=== PATIENT | male | born 1955 | race Caucasian/White ===

== ENCOUNTER → 2018-06-17 | Outpatient (CLI) | payer MEDICARE, OTHER ==
[2018-06-17 13:33] LABS: BASOPHILS ABSOLUTE AUTO 0.13 K/mm3 (0.00-0.23); BASOPHILS PERCENT AUTO 1 % (0-2); EOSINOPHILS ABSOLUTE AUTO 0.38 K/mm3 (0.00-0.68); EOSINOPHILS PERCENT AUTO 4 % (0-6); IMMATURE GRAN ABSOLUTE AUTO 0.03 K/mm3 (0.00-0.10); IMMATURE GRAN PERCENT AUTO 0 % (0-1); LYMPHOCYTES ABSOLUTE AUTO 1.05 K/mm3 (0.84-5.20); LYMPHOCYTES PERCENT AUTO 11 % (21-46); MONOCYTES ABSOLUTE AUTO 1.31 K/mm3 (0.16-1.47); MONOCYTES PERCENT AUTO 13 % (4-13); Mean Corpuscular HGB 34.2 pg (26.0-34.0); Mean Corpuscular HGB Conc 34.8 g/dL (31.5-36.5); Mean Corpuscular Volume 98 fL (80-100); Mean Platelet Volume 8.2 fL (9.1-12.4); NEUTROPHILS ABSOLUTE AUTO 6.98 K/mm3 (1.96-9.15); NEUTROPHILS PERCENT AUTO 71 % (41-73); Platelet Count 255 K/mm3 (150-400); RDW Coefficient Variation 13.1 % (11.7-14.2); Red Blood Cell Count 4.68 M/mm3 (4.30-5.90); White Blood Cell Count 9.88 K/mm3 (4.00-11.30)
[2018-06-17 13:41] LABS: Albumin, Blood 3.9 g/dL (3.4-5.0); Albumin/Globulin Ratio 0.9 (0.8-1.8); Bilirubin, Total 0.5 mg/dL (0.1-1.0); Calcium, Blood 8.7 mg/dL (8.5-10.1); Creatinine, Blood 1.33 mg/dL (0.60-1.20); Globulin, Blood 4.3 g/dL (2.2-4.0); Potassium, Blood 4.7 mmol/L (3.5-5.5); Total Protein, Blood 8.2 g/dL (6.4-8.2)
== END | disposition home or self-care (01) ==
LOC: LAB SHORT 13:27 → LAB EV 13:27
PROVIDERS: Physician Assistant
DX: E11.65 Type 2 diabetes mellitus with hyperglycemia (principal); R60.9 Edema, unspecified
CPT/HCPCS: 80053; 83880; 85025

== ENCOUNTER 2018-10-28 14:31 | Emergency (ER) | payer MEDICARE, OTHER ==
[~2018-10-28] VITALS: Ht 177.8 cm; Wt 163.3 kg
[2018-10-28 15:17] LABS: BASOPHILS ABSOLUTE AUTO 0.08 K/mm3 (0.00-0.23); BASOPHILS PERCENT AUTO 1 % (0-2); EOSINOPHILS ABSOLUTE AUTO 0.24 K/mm3 (0.00-0.68); EOSINOPHILS PERCENT AUTO 2 % (0-6); Hematocrit 43.6 % (37.0-53.0); Hemoglobin 14.6 g/dL (13.5-17.5); IMMATURE GRAN ABSOLUTE AUTO 0.08 K/mm3 (0.00-0.10); IMMATURE GRAN PERCENT AUTO 1 % (0-1); LYMPHOCYTES ABSOLUTE AUTO 1.21 K/mm3 (0.84-5.20); LYMPHOCYTES PERCENT AUTO 12 % (21-46); MONOCYTES ABSOLUTE AUTO 1.23 K/mm3 (0.16-1.47); MONOCYTES PERCENT AUTO 12 % (4-13); Mean Corpuscular HGB 34.3 pg (26.0-34.0); Mean Corpuscular HGB Conc 33.5 g/dL (31.5-36.5); Mean Corpuscular Volume 102 fL (80-100); Mean Platelet Volume 8.4 fL (9.1-12.4); NEUTROPHILS ABSOLUTE AUTO 7.59 K/mm3 (1.96-9.15); NEUTROPHILS PERCENT AUTO 73 % (41-73); Platelet Count 214 K/mm3 (150-400); RDW Coefficient Variation 12.5 % (11.7-14.2); RDW Standard Deviation 46.5 fL (35.1-46.3); Red Blood Cell Count 4.26 M/mm3 (4.30-5.90); White Blood Cell Count 10.43 K/mm3 (4.00-11.30)
[2018-10-28 15:32] LABS: Alanine Aminotransfer (ALT/SGP 51 U/L (12-78); Albumin, Blood 3.4 g/dL (3.4-5.0); Albumin/Globulin Ratio 0.9 (0.8-1.8); Alk Phos 92 U/L (50-136); Anion Gap 5 mmol/L (6-16); Aspartate Aminotrans (AST/SGOT 37 U/L (12-37); Bilirubin, Total 0.3 mg/dL (0.1-1.0); Blood Urea Nitrogen 11 mg/dL (8-24); Bun/Creatinine Ratio 10.7 (12.0-20.0); CO2, Blood 25 mmol/L (21-32); Calcium, Blood 8.9 mg/dL (8.5-10.1); Chloride, Blood 108 mmol/L (98-108); Creatinine, Blood 1.03 mg/dL (0.60-1.20); Globulin, Blood 3.7 g/dL (2.2-4.0); Glomerular Filtration Rate >60 (60-); Glucose, Blood 110 mg/dL (70-99); Potassium, Blood 3.9 mmol/L (3.5-5.5); Sodium, Blood 138 mmol/L (136-145); Total Protein, Blood 7.1 g/dL (6.4-8.2)
[2018-10-28] MEDS ORDERED: Synthroid200 MCG PO (16:32)
[2018-10-28] MEDS ORDERED: POTCIT10 (16:32)
[2018-10-28] MEDS ORDERED: HYDPAM50 (16:33)
[2018-10-28] MEDS ORDERED: ALBU90OI INH (16:33)
[2018-10-28] MEDS ORDERED: FURO20 (16:33)
[2018-10-28] MEDS ORDERED: MONT10T PO (16:33)
[2018-10-28] MEDS ORDERED: FLUT1DIS2 (16:33)
[2018-10-28] MEDS ORDERED: CYCL10 (16:34)
[2018-10-28] MEDS ORDERED: LISI20 PO (16:34)
[2018-10-28] MEDS ORDERED: MELO7.5 PO (16:34)
[2018-10-28] MEDS ORDERED: FAMO40 (16:34)
[2018-10-28] MEDS ORDERED: SODCHL3.5O (16:35)
[2018-10-28] MEDS ORDERED: GENPREOPSU (16:35)
[2018-10-28] MEDS ORDERED: BRIMONIDINE TART5 M1 (16:35)
[2018-10-28 18:01] LABS: Source, Urine Clean Catch
[2018-10-28 18:10] LABS: Bilirubin, Urine Neg (Neg); Blood, Urine Neg (Neg); Glucose Qualitative, Urine Neg (Neg); Ketones, Urine Neg (Neg); Leukocyte Esterase, Urine Neg (Neg); Nitrite, Urine Neg (Neg); Protein, Urine Neg (Neg); Specific Gravity, Urine 1.025 (1.003-1.022); Urobilinogen, Urine NORM (Normal)
[2018-10-28 18:16] LABS: Appearance, Urine Clear (Clear); Color, Urine Yellow (P-Yellow)
== END 2018-10-28 18:55 | disposition home or self-care (01) ==
LOC: ER 14:31
PROVIDERS: Physician Assistant
DX: R35.0 Frequency of micturition (principal); R39.15 Urgency of urination; E03.9 Hypothyroidism, unspecified; I11.0 Hypertensive heart disease with heart failure; I50.9 Heart failure, unspecified; Z88.0 Allergy status to penicillin; Z88.2 Allergy status to sulfonamides; Z88.8 Allergy status to other drugs, medicaments and biological substances; Z79.899 Other long term (current) drug therapy
CPT/HCPCS: 36415; 51798; 76870; 80053; 81003; 85025; 99284-25

== ENCOUNTER → 2019-12-15 | Outpatient (CLI) | payer MEDICARE, OTHER ==
[~2019-12-15] MED LIST: ALBU90OI INH; BRIMONIDINE TART5 M1; CYCL10; FAMO40; FLUT1DIS2; FURO20; GENPREOPSU; HYDPAM50; LISI20 PO; MELO7.5 PO; MONT10T PO; POTCIT10; SODCHL3.5O; Synthroid200 MCG PO
== END | disposition home or self-care (01) ==
LOC: PLD 09:14 → LAB SHORT 09:14
DX: L90.5 Scar conditions and fibrosis of skin (principal)
CPT/HCPCS: 88305

== ENCOUNTER → 2020-01-20 | Outpatient (CLI) | payer OTHER ==
[2020-01-20 12:42] LABS: Source, Urine Clean Catch
[2020-01-20 14:08] LABS: Appearance, Urine Clear (Clear); Bilirubin, Urine Neg (Neg); Blood, Urine Neg (Neg); Color, Urine Yellow (P-Yellow); Glucose Qualitative, Urine Neg (Neg); Ketones, Urine Neg (Neg); Leukocyte Esterase, Urine Neg (Neg); Nitrite, Urine Neg (Neg); Protein, Urine Neg (Neg); Urobilinogen, Urine NORM (Normal)
== END | disposition home or self-care (01) ==
LOC: LAB 11:25
PROVIDERS: Nurse Practitioner Family
DX: N28.9 Disorder of kidney and ureter, unspecified (principal)
CPT/HCPCS: 81003

== ENCOUNTER 2021-02-20 12:02 | Emergency (ER) | payer MEDICARE ==
[~2021-02-20] VITALS: Ht 177.8 cm; Wt 174.6 kg
[2021-02-20] MEDS ORDERED: MONDOXYNE NL100 MG PO (12:24)
[2021-02-20] MEDS ORDERED: TAMSULOSIN HCL0.4 M1 PO (12:24)
[2021-02-20] MEDS ORDERED: POTA10T PO (12:25)
[2021-02-20] MEDS ORDERED: TRELEGY ELLIPT1 EACH IH (12:27)
[2021-02-20] MEDS ORDERED: CEPH500 PO (13:48)
== END 2021-02-20 14:15 | disposition home or self-care (01) ==
LOC: ER 12:02
DX: L03.115 Cellulitis of right lower limb (principal); I11.9 Hypertensive heart disease without heart failure; I50.9 Heart failure, unspecified; E03.9 Hypothyroidism, unspecified; Z87.891 Personal history of nicotine dependence; Z88.0 Allergy status to penicillin; Z88.2 Allergy status to sulfonamides; Z88.8 Allergy status to other drugs, medicaments and biological substances; Z79.899 Other long term (current) drug therapy
CPT/HCPCS: 73620; 99283-25; A9270

== ENCOUNTER 2021-11-21 01:43 | Day surgery (SDC) | payer MEDICARE ==
[~2021-11-21 01:43] MED LIST changes: +CEPH500 PO; +MONDOXYNE NL100 MG PO; +POTA10T PO; +TAMSULOSIN HCL0.4 M1 PO; +TRELEGY ELLIPT1 EACH IH
== END 2021-11-21 22:49 | disposition home or self-care (01) ==
LOC: WOUND 01:43
DX: E11.621 Type 2 diabetes mellitus with foot ulcer (principal); E11.40 Type 2 diabetes mellitus with diabetic neuropathy, unspecified; Z88.0 Allergy status to penicillin; Z88.2 Allergy status to sulfonamides; L97.512 Non-pressure chronic ulcer of other part of right foot with fat layer exposed; L89.893 Pressure ulcer of other site, stage 3; Z88.8 Allergy status to other drugs, medicaments and biological substances
CPT/HCPCS: G0463

== ENCOUNTER 2021-11-28 01:57 | Day surgery (SDC) | payer MEDICARE | END 2021-11-28 23:21 | disposition home or self-care (01) | LOC: WOUND 01:57 | DX: E11.621 Type 2 diabetes mellitus with foot ulcer (principal); L97.512 Non-pressure chronic ulcer of other part of right foot with fat layer exposed; L89.893 Pressure ulcer of other site, stage 3; E11.40 Type 2 diabetes mellitus with diabetic neuropathy, unspecified | CPT/HCPCS: G0463 ==

== ENCOUNTER 2021-12-05 02:44 | Day surgery (SDC) | payer MEDICARE | END 2021-12-05 23:15 | disposition home or self-care (01) | LOC: WOUND 02:44 | DX: L89.893 Pressure ulcer of other site, stage 3 (principal); E11.621 Type 2 diabetes mellitus with foot ulcer | CPT/HCPCS: A9270; G0463 ==

== ENCOUNTER 2023-04-16 08:45 | Emergency (ER) | payer OTHER ==
[~2023-04-16] VITALS: Ht 177.8 cm; Wt 172.4 kg
[2023-04-16 11:54] LABS: BASOPHILS ABSOLUTE AUTO 0.12 K/mm3 (0.00-0.23); BASOPHILS PERCENT AUTO 1 % (0-2); EOSINOPHILS ABSOLUTE AUTO 0.32 K/mm3 (0.00-0.68); EOSINOPHILS PERCENT AUTO 3 % (0-6); Hematocrit 44.9 % (37.0-53.0); Hemoglobin 15.2 g/dL (13.5-17.5); IMMATURE GRAN ABSOLUTE AUTO 0.03 K/mm3 (0.00-0.10); IMMATURE GRAN PERCENT AUTO 0 % (0-1); LYMPHOCYTES ABSOLUTE AUTO 1.63 K/mm3 (0.84-5.20); LYMPHOCYTES PERCENT AUTO 16 % (21-46); MONOCYTES ABSOLUTE AUTO 0.99 K/mm3 (0.16-1.47); MONOCYTES PERCENT AUTO 10 % (4-13); Mean Corpuscular HGB 31.5 pg (26.0-34.0); Mean Corpuscular HGB Conc 33.9 g/dL (31.5-36.5); Mean Corpuscular Volume 93 fL (80-100); Mean Platelet Volume 8.8 fL (9.1-12.4); NEUTROPHILS ABSOLUTE AUTO 6.91 K/mm3 (1.96-9.15); NEUTROPHILS PERCENT AUTO 69 % (41-73); Platelet Count 266 K/mm3 (150-400); RDW Coefficient Variation 14.7 % (11.7-14.2); RDW Standard Deviation 50.9 fL (35.1-46.3); Red Blood Cell Count 4.83 M/mm3 (4.30-5.90)
[2023-04-16 12:18] LABS: Albumin, Blood 4.1 g/dL (3.4-5.0); Bilirubin, Total 0.4 mg/dL (0.1-1.0); Bun/Creatinine Ratio 15.4 (12.0-20.0); Calcium, Blood 9.7 mg/dL (8.5-10.1); Creatinine, Blood 1.36 mg/dL (0.60-1.20); Globulin, Blood 4.3 g/dL (2.2-4.0); Potassium, Blood 4.4 mmol/L (3.5-5.5); Total Protein, Blood 8.4 g/dL (6.4-8.2)
[2023-04-16] MEDS ORDERED: HYDROmorphone HCl/Pf 1MG SYR IV ONE (13:05)
[2023-04-16] MEDS ORDERED: Ondansetron HCl 2 MG / ML 2ML Vial IV ONE (13:05)
[2023-04-16] MEDS ORDERED: Percocet 5-3251 EACH PO (15:06)
[2023-04-16 15:07] VITALS: BP 115/74
== END 2023-04-16 15:27 | disposition home or self-care (01) ==
LOC: ER 08:45
PROVIDERS: Physician Assistant
DX: S76.911A Strain of unspecified muscles, fascia and tendons at thigh level, right thigh, initial encounter (principal); E03.9 Hypothyroidism, unspecified; Z87.891 Personal history of nicotine dependence; I11.0 Hypertensive heart disease with heart failure; I50.9 Heart failure, unspecified; Z88.8 Allergy status to other drugs, medicaments and biological substances; Z88.2 Allergy status to sulfonamides; Z88.0 Allergy status to penicillin; Z79.899 Other long term (current) drug therapy
CPT/HCPCS: 73700; 80053; 83690; 85025; 96374; 96375; 99284-25; J1170; J2405

== ENCOUNTER → 2024-01-11 | Outpatient (CLI) | payer OTHER ==
[~2024-01-11] MED LIST changes: +Percocet 5-3251 EACH PO
[2024-01-11 12:15] LABS: BASOPHILS ABSOLUTE AUTO 0.15 K/mm3 (0.00-0.23); BASOPHILS PERCENT AUTO 1 % (0-2); EOSINOPHILS PERCENT AUTO 4 % (0-6); Hematocrit 41.2 % (37.0-53.0); Hemoglobin 14.1 g/dL (13.5-17.5); IMMATURE GRAN ABSOLUTE AUTO 0.03 K/mm3 (0.00-0.10); IMMATURE GRAN PERCENT AUTO 0 % (0-1); LYMPHOCYTES ABSOLUTE AUTO 1.89 K/mm3 (0.84-5.20); LYMPHOCYTES PERCENT AUTO 18 % (21-46); MONOCYTES ABSOLUTE AUTO 1.36 K/mm3 (0.16-1.47); MONOCYTES PERCENT AUTO 13 % (4-13); Mean Corpuscular HGB 31.3 pg (26.0-34.0); Mean Corpuscular HGB Conc 34.2 g/dL (31.5-36.5); Mean Corpuscular Volume 91 fL (80-100); Mean Platelet Volume 8.9 fL (9.1-12.4); NEUTROPHILS PERCENT AUTO 65 % (41-73); Platelet Count 320 K/mm3 (150-400); RDW Coefficient Variation 14.8 % (11.7-14.2); RDW Standard Deviation 49.9 fL (35.1-46.3); Red Blood Cell Count 4.51 M/mm3 (4.30-5.90); White Blood Cell Count 10.83 K/mm3 (4.00-11.30)
[2024-01-11 12:40] LABS: Albumin, Blood 3.7 g/dL (3.4-5.0); Albumin/Globulin Ratio 0.9 (0.8-1.8); Bilirubin, Total 0.3 mg/dL (0.1-1.0); Bun/Creatinine Ratio 13.1 (12.0-20.0); Calcium, Blood 8.9 mg/dL (8.5-10.1); Creatinine, Blood 1.22 mg/dL (0.60-1.20); Globulin, Blood 4.3 g/dL (2.2-4.0); Potassium, Blood 3.6 mmol/L (3.5-5.5)
== END | disposition home or self-care (01) ==
LOC: LAB SHORT 10:04 → LAB 10:04
PROVIDERS: Nurse Practitioner Family
DX: J18.9 Pneumonia, unspecified organism (principal)
CPT/HCPCS: 80053; 85025

== ENCOUNTER → 2024-06-15 | Outpatient (CLI) | payer OTHER ==
[2024-06-15 13:07] LABS: BASOPHILS ABSOLUTE AUTO 0.06 K/mm3 (0.00-0.23); BASOPHILS PERCENT AUTO 0 % (0-2); EOSINOPHILS ABSOLUTE AUTO 0.15 K/mm3 (0.00-0.68); EOSINOPHILS PERCENT AUTO 1 % (0-6); Hematocrit 45.5 % (37.0-53.0); IMMATURE GRAN ABSOLUTE AUTO 0.03 K/mm3 (0.00-0.10); IMMATURE GRAN PERCENT AUTO 0 % (0-1); LYMPHOCYTES ABSOLUTE AUTO 0.91 K/mm3 (0.84-5.20); LYMPHOCYTES PERCENT AUTO 7 % (21-46); MONOCYTES ABSOLUTE AUTO 1.16 K/mm3 (0.16-1.47); MONOCYTES PERCENT AUTO 8 % (4-13); Mean Corpuscular HGB 30.7 pg (26.0-34.0); Mean Corpuscular Volume 93 fL (80-100); Mean Platelet Volume 8.8 fL (9.1-12.4); NEUTROPHILS ABSOLUTE AUTO 11.56 K/mm3 (1.96-9.15); NEUTROPHILS PERCENT AUTO 83 % (41-73); Platelet Count 301 K/mm3 (150-400); RDW Coefficient Variation 14.8 % (11.7-14.2); RDW Standard Deviation 50.9 fL (35.1-46.3); Red Blood Cell Count 4.89 M/mm3 (4.30-5.90); White Blood Cell Count 13.87 K/mm3 (4.00-11.30)
[2024-06-15 13:23] LABS: Albumin, Blood 3.6 g/dL (3.4-5.0); Albumin/Globulin Ratio 0.8 (0.8-1.8); Bilirubin, Total 0.5 mg/dL (0.1-1.0); Bun/Creatinine Ratio 10.9 (12.0-20.0); Calcium, Blood 9.2 mg/dL (8.5-10.1); Creatinine, Blood 1.1 mg/dL (0.60-1.20); Globulin, Blood 4.5 g/dL (2.2-4.0); Potassium, Blood 3.7 mmol/L (3.5-5.5); Total Protein, Blood 8.1 g/dL (6.4-8.2)
== END ==
LOC: LAB 13:02 → LAB SHORT 13:02
PROVIDERS: Emergency Medicine
DX: R10.11 Right upper quadrant pain (principal)
CPT/HCPCS: 80053; 83690; 84484; 85025

== ENCOUNTER 2024-10-08 12:26 | Inpatient (IN) | payer OTHER ==
[~2024-10-08] VITALS: Ht 177.8 cm; Wt 145.0 kg
[~2024-10-08 12:26] MED LIST changes: +Cleocin HCl150 MG PO
[2024-10-08 14:18] LABS: BASOPHILS ABSOLUTE AUTO 0.10 K/mm3 (0.00-0.23); BASOPHILS PERCENT AUTO 1 % (0-2); EOSINOPHILS ABSOLUTE AUTO 0.29 K/mm3 (0.00-0.68); EOSINOPHILS PERCENT AUTO 2 % (0-6); Hematocrit 40.4 % (37.0-53.0); Hemoglobin 13.5 g/dL (13.5-17.5); IMMATURE GRAN ABSOLUTE AUTO 0.04 K/mm3 (0.00-0.10); IMMATURE GRAN PERCENT AUTO 0 % (0-1); LYMPHOCYTES ABSOLUTE AUTO 1.26 K/mm3 (0.84-5.20); LYMPHOCYTES PERCENT AUTO 10 % (21-46); MONOCYTES ABSOLUTE AUTO 1.43 K/mm3 (0.16-1.47); MONOCYTES PERCENT AUTO 12 % (4-13); Mean Corpuscular HGB Conc 33.4 g/dL (31.5-36.5); Mean Corpuscular Volume 91 fL (80-100); NEUTROPHILS ABSOLUTE AUTO 9.03 K/mm3 (1.96-9.15); NEUTROPHILS PERCENT AUTO 74 % (41-73); NRBC ABSOLUTE 0.00 K/mm3 (0.00-0.02); NRBC Auto 0.0 /100 WBC (0.0-0.2); Platelet Count 376 K/mm3 (150-400); RDW Coefficient Variation 14.2 % (11.7-14.2); RDW Standard Deviation 47.7 fL (35.1-46.3)
[2024-10-08 15:14] LABS: Alanine Aminotransfer (ALT/SGP 43.0 U/L (12-78); Albumin, Blood 3.4 g/dL (3.4-5.0); Albumin/Globulin Ratio 0.7 (0.8-1.8); Anion Gap 3.0 mmol/L (3-11); Aspartate Aminotrans (AST/SGOT 30.0 U/L (12-37); Bilirubin, Total 0.5 mg/dL (0.1-1.0); Blood Urea Nitrogen 16.0 mg/dL (8-24); CO2, Blood 28.0 mmol/L (21-32); Calcium, Blood 9.1 mg/dL (8.5-10.1); Chloride, Blood 105.0 mmol/L (98-108); Creatinine, Blood 1.09 mg/dL (0.60-1.20); Globulin, Blood 4.6 g/dL (2.2-4.0); Glucose, Blood 88.0 mg/dL (70-99); Potassium, Blood 3.5 mmol/L (3.5-5.5); Sodium, Blood 132.0 mmol/L (136-145); Total Protein, Blood 8.0 g/dL (6.4-8.2)
[2024-10-08] MEDS ORDERED: CefTRIAXone Sodium 1,000 MG in NS 100 ML IV ONE (17:10)
[2024-10-08] MEDS ORDERED: Clindamycin 600mg in D5W 50 ML IV ONE (17:15)
[2024-10-08] MEDS ORDERED: Vancomycin (Pharmacy Consult) IV ONE (17:15)
[2024-10-08] MEDS ORDERED: Cefepime HCl 2,000 MG in NS 100 ML IV ONE (17:35)
[2024-10-08] MEDS ORDERED: HYDROmorphone HCl/Pf 1MG SYR IV ONE (17:35)
[2024-10-08 18:07] LABS: C-Reactive Protein, High Sens. 38.5 mg/L (0.000-3.000)
[2024-10-08] MEDS ORDERED: Vancomycin (Pharmacy Consult) IV SCH (18:35)
[2024-10-08] MEDS ORDERED: NS 1,000 ML IV SCH (18:40)
[2024-10-08] MEDS ORDERED: Ondansetron HCl 2 MG / ML 2ML Vial IV PRN ×2 (18:40→20:25)
[2024-10-08] MEDS ORDERED: FentaNYL Citrate 50 MCG/ML 2 ML Injection IV PRN ×2 (18:40→20:25)
[2024-10-08] MEDS ORDERED: Tiotropium Bromide 2.5 MCG/ACT MIST INHAL (10 ACT/4 GM) INH SCH (18:45)
[2024-10-08] MEDS ORDERED: Albuterol 2.5 MG/3 ML VIAL INH PRN (18:55)
[2024-10-08] MEDS ORDERED: FentaNYL Citrate 50 MCG/ML 2 ML Injection IV ONE (19:00)
[2024-10-08] MEDS ORDERED: Bupivacaine 0.5% HCl 5 MG/ML 30MLVIAL ONE (19:05)
[2024-10-08] MEDS ORDERED: Lidocaine HCL 1% 10 ML MDV ONE (19:05)
[2024-10-08] MEDS ORDERED: Formoterol/Mometasone MDI 5/200 mcg 13 GM INH SCH (19:25)
[2024-10-08] MEDS ORDERED: Dexmedetomidine HCL 200 MCG / 2 ML ONE (19:58)
--- NOTE | 2024-10-08 20:23 | NUR ---
10/08/242022 Bobby Hampton CLINDAMYCIN GIVEN BY ANESTHESIA AT 1940.
[2024-10-08] MEDS ORDERED: HYDROmorphone HCl/Pf 1MG SYR IV PRN (20:40)
[2024-10-08 20:50] VITALS: BP 100/64
[2024-10-08 20:55] VITALS: BP 93/55
[2024-10-08 21:00] VITALS: BP 98/57
[2024-10-08] MEDS ORDERED: Lactobacil 2-S.Thermo-Bifido 1 1 Cap PO SCH (21:00)
[2024-10-08 21:05] VITALS: BP 114/67
[2024-10-08 21:10] VITALS: BP 97/64
[2024-10-08] MEDS ORDERED: Cyclobenzaprine5 MG PO (21:49)
[2024-10-08] MEDS ORDERED: FURO40 PO (21:52)
[2024-10-08] MEDS ORDERED: EUTHYROX175 MCG PO (21:54)
[2024-10-08] MEDS ORDERED: ONDA4ODT MM (22:02)
[2024-10-08] MEDS ORDERED: Vitamin D1000 UNI1 PO (22:03)
[2024-10-08] MEDS ORDERED: C COMPLEX1000 M1 PO (22:04)
[2024-10-08] MEDS ORDERED: PREG150 PO ×2 (22:05→22:06)
[2024-10-08] MEDS ORDERED: DOCU100 PO (22:05)
[2024-10-08] MEDS ORDERED: OMEP20ER PO (22:07)
[2024-10-08] MEDS ORDERED: GLUC500 PO (22:08)
[2024-10-08] MEDS ORDERED: B-12500 MC2 PO (22:09)
[2024-10-08 23:41] VITALS: BP 118/83
[2024-10-09] VITALS (7 sets, daily range): BP systolic 109–145; BP diastolic 64–81
[2024-10-09] MEDS ORDERED: Clindamycin 900mg in D5W 50ML 50 ML IV SCH
[2024-10-09] MEDS ORDERED: Ipratropium Bromide INH 0.02% 0.5 mg/2.5ML Vial INH SCH (00:35)
[2024-10-09] MEDS ORDERED: Formoterol/Mometasone MDI 5/100 mcg 13 GM INH SCH (00:35)
--- NOTE | 2024-10-09 00:44 | NUR ---
ASSUMPTION OF CARE PT ARRIVED TO PCU VIA KIN AROUND 2124. BEDSIDE REPORT RECIEVED FROM TEST HOLE DRILLER. PT A&O X4, CALM, COOPERATIVE TO CARE. SINUS KENDALL, 50'S. HE DENIES ANY CP/PRESSURE. SBP STABLE. O2 >92% ON RA, PT HAS HOME BIPAP MACHINE AT BEDSIDE, RT AT BEDSIDE TO SET UP. 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 SITE COVERED WITH GUAZE AND WILVER WRAP, SITE C/D/I. PT REPORTING PAIN AT SITE AND PAIN IN LEFT LEG DUE TO NEUROPATHY, MEDICATED PER EMAR. PT RESTING IN BED AT THIS TIME. CALL LIGHT IN REACH.
[2024-10-09 04:10] LABS: BASOPHILS ABSOLUTE AUTO 0.09 K/mm3 (0.00-0.23); BASOPHILS PERCENT AUTO 1 % (0-2); EOSINOPHILS ABSOLUTE AUTO 0.42 K/mm3 (0.00-0.68); EOSINOPHILS PERCENT AUTO 5 % (0-6); Hematocrit 40.4 % (37.0-53.0); Hemoglobin 13.3 g/dL (13.5-17.5); IMMATURE GRAN ABSOLUTE AUTO 0.03 K/mm3 (0.00-0.10); IMMATURE GRAN PERCENT AUTO 0 % (0-1); LYMPHOCYTES ABSOLUTE AUTO 1.26 K/mm3 (0.84-5.20); LYMPHOCYTES PERCENT AUTO 14 % (21-46); MONOCYTES ABSOLUTE AUTO 1.28 K/mm3 (0.16-1.47); MONOCYTES PERCENT AUTO 14 % (4-13); Mean Corpuscular HGB Conc 32.9 g/dL (31.5-36.5); Mean Corpuscular Volume 93 fL (80-100); NEUTROPHILS ABSOLUTE AUTO 6.23 K/mm3 (1.96-9.15); NEUTROPHILS PERCENT AUTO 67 % (41-73); NRBC ABSOLUTE 0.00 K/mm3 (0.00-0.02); NRBC Auto 0.0 /100 WBC (0.0-0.2); Platelet Count 317 K/mm3 (150-400); RDW Coefficient Variation 14.3 % (11.7-14.2); RDW Standard Deviation 48.8 fL (35.1-46.3)
[2024-10-09 04:41] LABS: Alanine Aminotransfer (ALT/SGP 35.0 U/L (12-78); Albumin, Blood 2.9 g/dL (3.4-5.0); Albumin/Globulin Ratio 0.7 (0.8-1.8); Anion Gap 8.0 mmol/L (3-11); Aspartate Aminotrans (AST/SGOT 24.0 U/L (12-37); Bilirubin, Total 0.4 mg/dL (0.1-1.0); Blood Urea Nitrogen 16.0 mg/dL (8-24); CO2, Blood 27.0 mmol/L (21-32); Calcium, Blood 8.2 mg/dL (8.5-10.1); Chloride, Blood 105.0 mmol/L (98-108); Creatinine, Blood 1.0 mg/dL (0.60-1.20); Globulin, Blood 4.4 g/dL (2.2-4.0); Glucose, Blood 99.0 mg/dL (70-99); Magnesium, Blood 2.0 mg/dL (1.6-2.4); Potassium, Blood 3.3 mmol/L (3.5-5.5); Sodium, Blood 137.0 mmol/L (136-145); Total Protein, Blood 7.3 g/dL (6.4-8.2)
--- NOTE | 2024-10-09 05:43 | NUR ---
SHIFT SUMMARY PT A&O X4, CALM, COOERATIVE TO CARE. SINUS KENDALL, 50'S. HE DENIES ANY CP/PRESSURE. SBP SOFT IN THE 100'S, MAP >65. SPO2 >92% ON RA WHILE AWAKE. PT HAS HOME CPAP AT BEDSIDE SIDDHARTHA THE HAS BEEN USING FOR SLEEP. RT TO BEDSIDE TO SET UP MACHINE, PER RT PT TO BE ON BIPAP IF HE IS NAPPING DUE TO HIGH HOME SETTINGS. PT WAS ABLE TO GET UP TO BSC ONCE DURING SHIFT WITH 1 PERSON ASSIST AND CRUTCHES TO KEEP WEIGHT OFF HIS FOOT. PT HAVING 8/10 PAIN IN THE RIGHT FOOT, MEDICATING PER EMAR. PT POD 1 1ST METATARSAL AMPUTATION, SITE COVERED WITH GUAZE AND WILVER WRAP. DRESSING C/D/I. PT RESTING IN BED AT THIS TIME. CALL LIGHT IN REACH. WILL MONITOR PT AND REPORT TO ONCOMING RN.
--- NOTE | 2024-10-09 06:49 | NUR ---
UPDATE PT HAD POTASSIUM OF 3.3 ON MORNING LABS. ATTEMPTED TO CALL PROVIDER BUT THEY DID NOT ANSWER. WILL PASS ALONG TO DAY SHIFT RN.
[2024-10-09] MEDS ORDERED: Cefepime HCl 2,000 MG in NS 100 ML IV SCH (09:00)
[2024-10-09] MEDS ORDERED: Brimonidine Tartrate 0.2% Opth 5 ml RIGHTEYE SCH (09:00)
[2024-10-09] MEDS ORDERED: Cholecalciferol 1000 Unit Tablet (=25MCG) PO SCH (09:00)
[2024-10-09] MEDS ORDERED: HYDROmorphone HCl/Pf 1MG SYR IV PRN (14:45)
--- NOTE | 2024-10-09 17:06 | NUR ---
PT AOX4 AND COOPERATIVE OF CARE. PT SPENT MOST OF THE DAY RESTING IN BED AND HAS BEEN TREATED FOR PAIN IN R FOOT POST GREAT TOE REMOVAL PER EMAR. PT ABLE TO MAKE ALL NEEDS KNOWN. OT WAS ABLE TO GET PT UP TO CHAIR NO WIEGHT BEARING ON R FOOT PT IS A TWO PERSON PIVOT WITH WALKER AND GAITBELT. PT UP WATCHING TV. WILL CONTINUE TO MONITOR.
--- NOTE | 2024-10-09 17:26 | NUR ---
PT HAS BEEN AOX4 AND COOPERATIVE OF ALL CARE. DOPPER WAS NEEDED IN THE AM TO GET PULSE ON L FOOT. PT WAS NPO PRIOR TO PROCEDURE WITH DR ARCE FOR REVASCULIZATION. PT RECIEVED 3 STENTS AND VITALS HAVE BEEN STABLE SINCE RETURNING TO ROOM AT 1550. HEPRIN HAS BEEN RESTARTED ONE HOUR PAST ARRIVAL TO ROOM AND IS MANAGED BY PHARMACY SEE EMAR. PT REUSED INSULING CONCERNED 159 WAS A BIT LOW TO RECIEVE COVERAGE. INSULIN HAS BEEN HELD. PT IS LAYING FLAT WILL GRADUALLY INCREASE INCLINE TILL END OF SHIFT. GROIN INCISION SITE HAS 1CM RADIUS BLEED THROUGH NO PAIN OR SWELLING AROUND SITE CHECKING EVERY 15 MIN. WILL CONTINUE TO MONITOR. CALL LIGHT IS IN REACH.
[2024-10-09] MEDS ORDERED: OPTH BOTHEYES SCH (21:00)
[2024-10-09] MEDS ORDERED: FLUOROMETHOLONE 0.1% BOTHEYES SCH (21:00)
[2024-10-10] MEDS ORDERED: Ipratropium Bromide INH 0.02% 0.5 mg/2.5ML Vial INH SCH (00:35)
[2024-10-10 02:57] VITALS: BP 121/75
--- NOTE | 2024-10-10 05:35 | NUR ---
SHIFT SUMMARY PT A&O X4, CALM, COOPERATIVE TO CARE. IN SINUS KENDALL, HR IN THE 50'S, DENIES ANY CP/PRESSURE, NUMB/TINGLING, SBP STABLE. SPO2 >92% ON RA WHILE AWAKE. PT HAS HOME BIPAP AT BEDSIDE, USES FOR NAPS AND SWITH SLEEP. HE DENIES ANY SOB. PT UP TO BSC A FEW TIMES T/O SHIFT. PT IS POD 2 AFTER RIGHT 1ST METATARSAL AMPUTATION. PT HAVING PAIN RANGING FROM 6-8/10, MEDICATING PER EMAR. PT IS ABLE TO PLACE SMALL AMOUNT OF WEIGHT ON THE HEEL OF HIS FOOT BUT NON-WEIGHTBEARING ON THE REST OF THE FOOT. PT PIVOTING TO CHAIR AND COMMODE WITH FWW/ AND GAIT BELT, 2PA, TOLERATING WELL. PT RESTING IN BED AT THSI TIME, CALL LIGHT IN REACH. WILL MONITOR PT AND REPORT TO ONCOMING RN.
[2024-10-10 07:50] VITALS: BP 120/69
--- NOTE | 2024-10-10 10:09 | NUR ---
PT TRANSFERRED TO 304 VIA BED, REPORT GIVEN TO COLIN HARTMAN. ALL BELONGINGS SENT WITH THE PT, PT CALLED AND MADE HER AWARE OF THE TRANSFER. POWERGLIDE PLACED ON BRAYAN. BLOOD DRAW SENT TO LAB.
[2024-10-10 10:35] LABS: Alanine Aminotransfer (ALT/SGP 27.0 U/L (12-78); Albumin, Blood 2.8 g/dL (3.4-5.0); Albumin/Globulin Ratio 0.7 (0.8-1.8); Anion Gap 6.0 mmol/L (3-11); Aspartate Aminotrans (AST/SGOT 20.0 U/L (12-37); Bilirubin, Total 0.4 mg/dL (0.1-1.0); Blood Urea Nitrogen 12.0 mg/dL (8-24); CO2, Blood 27.0 mmol/L (21-32); Calcium, Blood 8.4 mg/dL (8.5-10.1); Chloride, Blood 106.0 mmol/L (98-108); Creatinine, Blood 0.93 mg/dL (0.60-1.20); Globulin, Blood 4.2 g/dL (2.2-4.0); Glucose, Blood 121.0 mg/dL (70-99); Potassium, Blood 3.7 mmol/L (3.5-5.5); Sodium, Blood 135.0 mmol/L (136-145); Total Protein, Blood 7.0 g/dL (6.4-8.2)
[2024-10-10 11:16] LABS: Vancomycin, Trough 14.1 ug/mL (5.0-10.0)
[2024-10-10 11:34] VITALS: BP 106/55
[2024-10-10 11:38] LABS: Hematocrit 38.6 % (37.0-53.0); Hemoglobin 12.8 g/dL (13.5-17.5); Mean Corpuscular HGB Conc 33.2 g/dL (31.5-36.5); Mean Corpuscular Volume 92 fL (80-100); NRBC ABSOLUTE 0.00 K/mm3 (0.00-0.02); NRBC Auto 0.0 /100 WBC (0.0-0.2); Platelet Count 338 K/mm3 (150-400); RDW Coefficient Variation 14.6 % (11.7-14.2); RDW Standard Deviation 49.1 fL (35.1-46.3)
[2024-10-10 17:08] VITALS: BP 137/77
[2024-10-10 19:29] VITALS: BP 141/74
[2024-10-10 23:44] VITALS: BP 93/52
[2024-10-11 00:34] VITALS: BP 113/65
--- NOTE | 2024-10-11 04:06 | NUR ---
SHIFT SUMMARY ADMITTED FOR CELLULITIS OF RIGHT FOOT. FULL CODE. IV ANTIB RX ARE SCHEDULED. IV FLUIDS INFUSING. POST OP FROM TOE AMPUTATIONS. MRI PLANNED FOR TODAY TO DETERMINE IF MORE SURGICAL INTERVENTION WILL BE NEEDED. DR. ROBLERO IS PODIATRY CONSULT. PT IS PIVOT TO [facility], WITH RIGHT FOOT BEING HEEL TOUCH ONLY FOR THOSE TRANSFERS. HE HAS BEEN NPO SINCE MIDNIGHT. TELEMETRY: NSR @ 75 BPM. POWERGLIDE IN RUE. CPAP @ HS. THE PATIENT REQUESTED PO PAIN RX ONLY THIS SHIFT.
[2024-10-11 04:30] VITALS: BP 126/65
[2024-10-11 07:36] VITALS: BP 135/98
[2024-10-11 09:55] LABS: BASOPHILS ABSOLUTE AUTO 0.10 K/mm3 (0.00-0.23); BASOPHILS PERCENT AUTO 1 % (0-2); EOSINOPHILS ABSOLUTE AUTO 0.34 K/mm3 (0.00-0.68); EOSINOPHILS PERCENT AUTO 3 % (0-6); Hematocrit 37.4 % (37.0-53.0); Hemoglobin 12.3 g/dL (13.5-17.5); IMMATURE GRAN ABSOLUTE AUTO 0.06 K/mm3 (0.00-0.10); IMMATURE GRAN PERCENT AUTO 0 % (0-1); LYMPHOCYTES ABSOLUTE AUTO 1.54 K/mm3 (0.84-5.20); LYMPHOCYTES PERCENT AUTO 12 % (21-46); MONOCYTES ABSOLUTE AUTO 2.13 K/mm3 (0.16-1.47); MONOCYTES PERCENT AUTO 16 % (4-13); Mean Corpuscular HGB Conc 32.9 g/dL (31.5-36.5); Mean Corpuscular Volume 91 fL (80-100); NEUTROPHILS ABSOLUTE AUTO 9.19 K/mm3 (1.96-9.15); NEUTROPHILS PERCENT AUTO 69 % (41-73); NRBC ABSOLUTE 0.00 K/mm3 (0.00-0.02); NRBC Auto 0.0 /100 WBC (0.0-0.2); Platelet Count 311 K/mm3 (150-400); RDW Coefficient Variation 14.5 % (11.7-14.2); RDW Standard Deviation 48.7 fL (35.1-46.3)
[2024-10-11] MEDS ORDERED: Colchicine 0.6 MG TAB PO ONE (11:40)
[2024-10-11 12:04] VITALS: BP 113/68
[2024-10-11] MEDS ORDERED: Magnesium Hydroxide Conc 10 ML UDC PO PRN (13:00)
[2024-10-11] MEDS ORDERED: Polyethylene Glycol 3350 17 gm PO PRN (13:00)
--- NOTE | 2024-10-11 14:08 | NUR ---
PT REPORTS NO BM SINCE PRIOR TO ADMISSION. DR. GILLIAM NOTIFIED. TODAY WOULD BE DAY 3 NO BM. DAI GILLIAM ORDERED PRN MILK OF MAG AND MIRILAX. PATIENT DENIED AT THIS TIME, OPEM TO TRYING TONIGHT OR TOMORROW.
[2024-10-11 15:42] VITALS: BP 129/65
[2024-10-11 19:28] VITALS: BP 123/71
--- NOTE | 2024-10-11 19:45 | NUR ---
SUMMARY PT USING BIPAP OVERNIGHT FROM HOME, CONTINUOUS PULSE OX. IV ANTIBIOTICS ADMINISTERED. MRI COMPLETED, DR. ROBLERO TO REVIEW RESULTS WITH PATIENT AND DISCUSS PLAN OF CARE TOMORROW. PT HEEL TOUGH WEIGHT BEARING ONLY TO RIGHT FOOT. ABLE TO MAKE NEEDS KNOWN.
[2024-10-11 22:40] LABS: Vancomycin, Trough 24.5 ug/mL (5.0-10.0)
[2024-10-12 00:02] VITALS: BP 127/66
[2024-10-12 03:30] VITALS: BP 115/71
[2024-10-12 06:22] LABS: BASOPHILS ABSOLUTE AUTO 0.10 K/mm3 (0.00-0.23); BASOPHILS PERCENT AUTO 1 % (0-2); EOSINOPHILS ABSOLUTE AUTO 0.43 K/mm3 (0.00-0.68); EOSINOPHILS PERCENT AUTO 4 % (0-6); Hematocrit 34.2 % (37.0-53.0); Hemoglobin 11.2 g/dL (13.5-17.5); IMMATURE GRAN ABSOLUTE AUTO 0.04 K/mm3 (0.00-0.10); IMMATURE GRAN PERCENT AUTO 0 % (0-1); LYMPHOCYTES ABSOLUTE AUTO 1.46 K/mm3 (0.84-5.20); LYMPHOCYTES PERCENT AUTO 12 % (21-46); MONOCYTES ABSOLUTE AUTO 1.95 K/mm3 (0.16-1.47); MONOCYTES PERCENT AUTO 16 % (4-13); Mean Corpuscular HGB Conc 32.7 g/dL (31.5-36.5); Mean Corpuscular Volume 91 fL (80-100); NEUTROPHILS ABSOLUTE AUTO 7.89 K/mm3 (1.96-9.15); NEUTROPHILS PERCENT AUTO 67 % (41-73); NRBC ABSOLUTE 0.00 K/mm3 (0.00-0.02); NRBC Auto 0.0 /100 WBC (0.0-0.2); Platelet Count 308 K/mm3 (150-400); RDW Coefficient Variation 14.6 % (11.7-14.2); RDW Standard Deviation 48.9 fL (35.1-46.3)
--- NOTE | 2024-10-12 06:37 | NUR ---
SUMMARY: PT A/OX4, ENDORSES NEEDS AND IS PLEASANT AND COOPERATIVE W/CARE. HE SITS AT [facility] AND REPOSTIONS SELF AD ABRAM BUT IS UP W/1-2P PIVOT T/F TO CHAIR FOR NON-WT BEARING R.FOOT. PT IS POD 3 FOR R.GREAT TOE AMPUTATION W/DX REMAINING C/D/I. LEG IS ELEVATED IN BED AND LOCALIZED SWELLING PERSISTS. HE'S BEEN NPO SINCE MO FOR POSSIBLE PROCEDURE AND RECEIVED PRN FENTANYL AND OXYCODONE FOR TOLERABLE RELIEF OF ASSOCIATED R.FOOT PAIN. IV ABX PROVIDED PER EMAR AND VANCO ORDER CHANGED PER PHARMACY TONIGHT. HE HAS ONGOING INTERMITTENT WHEEZES AND A HARSH PRODUCTIVE COUGH AT TIMES. SPO2 WNL ON RA AND PT TOLERATED HOME BIPAP WHILE ASLEEP. PT IS NSR ON TELE AT 60'S-80'S BPM. VSS/AFEBRILE, NO ACUTE CHANGES. WILL REPORT TO DAY RN.
[2024-10-12 06:44] LABS: Anion Gap 11.0 mmol/L (3-11); Blood Urea Nitrogen 14.0 mg/dL (8-24); CO2, Blood 21.0 mmol/L (21-32); Calcium, Blood 7.9 mg/dL (8.5-10.1); Chloride, Blood 107.0 mmol/L (98-108); Creatinine, Blood 0.98 mg/dL (0.60-1.20); Glucose, Blood 95.0 mg/dL (70-99); Potassium, Blood 3.7 mmol/L (3.5-5.5); Sodium, Blood 135.0 mmol/L (136-145); Uric Acid, Blood 6.8 mg/dL (3.5-7.2)
[2024-10-12 08:54] VITALS: BP 112/63
[2024-10-12] MEDS ORDERED: Colchicine 0.6 MG TAB PO SCH (09:00)
[2024-10-12] MEDS ORDERED: LACT PO (12:20)
[2024-10-12] MEDS ORDERED: COLCHICINE0.6 MG PO (12:20)
[2024-10-12] MEDS ORDERED: ALLO300 PO (12:21)
[2024-10-12] MEDS ORDERED: CLIN300 PO (12:21)
--- NOTE | 2024-10-12 14:46 | NUR ---
DISCHARGE NOTE PATIENT EDUCATED ON DISCHARGE PACKET AND INSTRUCITONS. DR. DIETRICH DC'D MANY HOME MEDS WITHOUT ANY INDICATION/REASON GIVEN TO PATIENT. PATIENT WAS UPSET, WILL FOLLOW UP WITH PCP ABOUT [facility]. DME WHEELCHAIR COULD NOT BE DELIVERED, PER MOBILE UI/UX DESIGNER PT CAN GO TO [facility] TO APPLY FOR WHEELCHIAR IN PERSON TOMORROW TO SEE IF APPROVED. MESSAGED PASSED ON TO PATIENT AND FAMILY. BELONGINGS GATHERED AND RETURNED TO PATIENT. EYE DROPS SENT WITH PATIENT. CRUTCHES SENT WITH PATIENT. FAMILY TOOK PERSONAL BELONGINGS. PT WOUND WAS ASSESSED AND CLEANSED AND REDRESSED BY DR. ROBLERO THIS AM. WOUND FOLLOW UP WITH DR. ROBLERO OUTPT. PT ESCORTED DOWN VIA WHEELCHAIR. IV AND POWERGLIDE REMOVED. MEDS FAXED TO [facility]. NO NEW QUESTOINS OR CONCERNS PRIOR TO DC.
== END 2024-10-12 13:50 | disposition home health service (06) | DRG 239 ==
LOC: ER 12:26 → ERHOLD 18:23 → PCU 18:23 → ER 19:19 → PCU 21:19 → MEDS 10-10 10:03
PROVIDERS: Family Medicine; Nurse Practitioner Acute Care; Podiatrist Foot & Ankle Surgery; Student in an Organized Health Care Education/Training Program; ADMIT Internal Medicine
PROC: 0Y6M0Z9 Detachment at Right Foot, Partial 1st Ray, Open Approach (ICD-10-PCS; 2024-10-08)
PROC: 3E03329 Introduction of Other Anti-infective into Peripheral Vein, Percutaneous Approach (ICD-10-PCS; principal; 2024-10-08 09:30)
DX: E11.52 Type 2 diabetes mellitus with diabetic peripheral angiopathy with gangrene (principal); A48.0 Gas gangrene; M72.6 Necrotizing fasciitis; L89.894 Pressure ulcer of other site, stage 4; L03.115 Cellulitis of right lower limb; E11.628 Type 2 diabetes mellitus with other skin complications; E03.9 Hypothyroidism, unspecified; E87.6 Hypokalemia; I11.0 Hypertensive heart disease with heart failure; I50.9 Heart failure, unspecified; G47.33 Obstructive sleep apnea (adult) (pediatric); J44.9 Chronic obstructive pulmonary disease, unspecified; N40.0 Benign prostatic hyperplasia without lower urinary tract symptoms; E11.42 Type 2 diabetes mellitus with diabetic polyneuropathy; E66.89 Other obesity not elsewhere classified; E66.813 Obesity, class 3; M10.9 Gout, unspecified; K21.9 Gastro-esophageal reflux disease without esophagitis; H40.9 Unspecified glaucoma; Z79.890 Hormone replacement therapy; Z79.899 Other long term (current) drug therapy; Z79.51 Long term (current) use of inhaled steroids; Z79.52 Long term (current) use of systemic steroids; Z87.891 Personal history of nicotine dependence; Z98.890 Other specified postprocedural states; Z88.0 Allergy status to penicillin; Z88.2 Allergy status to sulfonamides; Z88.8 Allergy status to other drugs, medicaments and biological substances
CPT/HCPCS: 36415; 73700; 73718; 80048; 80053; 80202; 82550; 82947; 83036; 83605; 83735; 84550; 85025; 85027; 86141; 87040; 94640; 94664; 94762; 96374; 96375; 97110; 97116; 97162; 97165; 97530; 99284-25; A9270; J0692; J1171; J2003; J2704; J3010; J3373; J3480; J7030; J7040; J7050; J7120

== ENCOUNTER → 2025-02-17 | Outpatient (CLI) | payer OTHER ==
[~2025-02-17] MED LIST changes: +ALLO300 PO; +B-12500 MC2 PO; +C COMPLEX1000 M1 PO; +CLIN300 PO; +COLCHICINE0.6 MG PO; +Cyclobenzaprine5 MG PO; +DOCU100 PO; +EUTHYROX175 MCG PO; +FURO40 PO; +GLUC500 PO; +LACT PO; +OMEP20ER PO; +ONDA4ODT MM; +PREG150 PO; +Vitamin D1000 UNI1 PO
[2025-02-17 18:12] LABS: BASOPHILS ABSOLUTE AUTO 0.11 K/mm3 (0.00-0.23); BASOPHILS PERCENT AUTO 1 % (0-2); EOSINOPHILS ABSOLUTE AUTO 0.43 K/mm3 (0.00-0.68); EOSINOPHILS PERCENT AUTO 4 % (0-6); Hematocrit 39.8 % (37.0-53.0); Hemoglobin 13.2 g/dL (13.5-17.5); IMMATURE GRAN ABSOLUTE AUTO 0.06 K/mm3 (0.00-0.10); IMMATURE GRAN PERCENT AUTO 1 % (0-1); LYMPHOCYTES ABSOLUTE AUTO 1.08 K/mm3 (0.84-5.20); LYMPHOCYTES PERCENT AUTO 9 % (21-46); MONOCYTES ABSOLUTE AUTO 1.38 K/mm3 (0.16-1.47); MONOCYTES PERCENT AUTO 12 % (4-13); Mean Corpuscular HGB Conc 33.2 g/dL (31.5-36.5); Mean Corpuscular Volume 95 fL (80-100); NEUTROPHILS ABSOLUTE AUTO 8.63 K/mm3 (1.96-9.15); NEUTROPHILS PERCENT AUTO 74 % (41-73); NRBC ABSOLUTE 0.00 K/mm3 (0.00-0.02); NRBC Auto 0.0 /100 WBC (0.0-0.2); Platelet Count 252 K/mm3 (150-400); RDW Coefficient Variation 15.3 % (11.7-14.2); RDW Standard Deviation 53.2 fL (35.1-46.3)
[2025-02-17 19:31] LABS: Alanine Aminotransfer (ALT/SGP 30.0 U/L (12-78); Albumin, Blood 3.1 g/dL (3.4-5.0); Albumin/Globulin Ratio 0.7 (0.8-1.8); Anion Gap 8.0 mmol/L (3-11); Aspartate Aminotrans (AST/SGOT 19.0 U/L (12-37); Bilirubin, Total 0.3 mg/dL (0.1-1.0); Blood Urea Nitrogen 19.0 mg/dL (8-24); C-REACTIVE PROTEIN, EXT RANGE 10.6 mg/dL (0.000-0.300); CO2, Blood 26.0 mmol/L (21-32); Calcium, Blood 8.8 mg/dL (8.5-10.1); Chloride, Blood 104.0 mmol/L (98-108); Creatinine, Blood 1.01 mg/dL (0.60-1.20); Globulin, Blood 4.5 g/dL (2.2-4.0); Glucose, Blood 106.0 mg/dL (70-99); Potassium, Blood 4.3 mmol/L (3.5-5.5); Sodium, Blood 134.0 mmol/L (136-145); Total Protein, Blood 7.6 g/dL (6.4-8.2)
[2025-02-18 20:15] LABS: RHEUMATOID FACTOR <10 IU/mL (0-14)
[2025-02-18 22:15] LABS: ANTI-NUCLEAR AB ANA,IGG ELISA Detected (None Detected)
[2025-02-20 07:25] LABS: ANTINUCLEAR AB (ANA),HEP-2,IGG Detected (<1:80)
[2025-02-20 22:56] LABS: DOUBLE-STRANDED DNA IGG ELISA 7 IU (0-24)
[2025-02-21 06:06] LABS: SMITH/RNP (ENA) AB, IGG 5 Units (0-19)
[2025-02-21 14:22] LABS: JO-1 HISTIDYL-TRNA SYNTHET,IGG 1 AU/mL (0-40); SCLERODERMA (SCL-70) AB,IGG 1 AU/mL (0-40); SMITH (ENA) ANTIBODY, IGG 4 AU/mL (0-40); SSA-52 (RO52) (ENA) AB, IGG 5 AU/mL (0-40); SSA-60 (RO60) (ENA) AB, IGG 0 AU/mL (0-40); SSB (LA) (ENA) ANTIBODY, IGG 0 AU/mL (0-40)
[2025-02-23 07:32] LABS: ANKYLOSING SPONDYLITIS HLAB27 Positive
== END | disposition home or self-care (01) ==
LOC: LAB SHORT 12:19 → LAB 12:19
PROVIDERS: Student in an Organized Health Care Education/Training Program
DX: M45.6 Ankylosing spondylitis lumbar region (principal)
CPT/HCPCS: 80053; 81374; 85025; 85651; 86038; 86039; 86140; 86225; 86235; 86431